=== PATIENT | male | born 2000 | race Asian ===

== ENCOUNTER 2025-07-13 15:58 | Emergency (ER) | payer MEDICAID, SELFPAY ==
--- NOTE | 2025-07-13 16:19 | ED_ITS ---
HPI - General Adult General Chief complaint: General Medical Stated complaint: HGb A1C testing Time Seen by Provider: 07/13/25 20:05 Source: patient Mode of arrival: ambulatory Limitations: no limitations History of Present Illness ED Provider: Esvin MASON HPI narrative: The patient is a 25-year-old male presenting to the ED for evaluation of intermittent episodes of slow digestion and acid reflux which occurs more with fried foods, patient reports symptoms increased last week after a food festival. The patient denies any associated fever/chills, nausea, vomiting, chest pain, shortness of breath, cough, pleurisy, diarrhea, constipation, or other acute somatic complaint. Patient reports he is also worried because while he lived in [place] his blood sugar was elevated and patient is requesting hemoglobin A1c testing. Related Data Previous Rx's ?Medication ?Instructions ?Recorded omeprazole 20 mg capsule,delayed 20 mg PO DAILY #14 ca ps 07/13/25 release Allergies Allergy/AdvReac Type Severity Reaction Status Date / Time No Known Allergies Allergy Verified 07/13/25 16:20 Review of Systems 2 Review of Systems: Yes all other systems are reviewed and are negative PMFSH Social History Social History Advance Directives: No Advance Directives Information Provided: Yes Physical Exam ED Vital Signs: Vital Signs - 24 hr 07/13/25 16:20 07/13/25 20:34 Temperature 97.6 F 97.6 F Pulse Rate 68 68 Respiratory Rate 16 16 Blood Pressure 120/67 120/67 Pulse Oximetry 100 100 Oxygen Delivery Method Room Air Room Air BMI result Body Mass Index 27.4 CONSTITUTIONAL: The patient appears non-toxic, well nourished and in no acute distress. Vital signs as documented. HEAD: Atraumatic, normocephalic. EYES: EOMs grossly intact, pupils equal, conjunctiva clear, no exudate. ENT: Nares patent, no discharge. Airway patent, no audible stridor, visible mucosa is pink and moist without noted lesions. NECK: Trachea is midline, no obvious masses or gross abnormalities. CHEST: Symmetric movement, normal appearance. LUNGS: LS present and CTAB, no w/r/r. Non-labored work of breathing. CARDIAC: Regular Rhythm, S1/S2 appreciated, no murmurs, rubs or gallops. ABDOMEN: Abdomen soft and non-tender x4 quadrants, no palpable masses or organomegaly. : Deferred. EXTREMITIES: Normal tone, moves all extremities spontaneously without reported pain. No obvious acute injury or deformity noted. NEURO: Alert and oriented x3, CN II-XII appear grossly intact. Cerebellar Functioning grossly intact. No obvious sensory or motor deficits. Speech clear and appropriate. PSYCH: normal affect, appropriate eye contact, fluid speech, with appropriate response to questioning. No reported suicidality or homicidality. SKIN: Warm, dry, color appropriate, normal turgor. No rashes noted. Course Course Course Narrative: This is a rapid medical exam performed by Kate Chew NP: Additional HPI, ROS, PE not included below will be deferred to primary provider. Patient is a 25 year old male presenting with complaint of slowed digestion, at times has reflux. Specifically requesting A1c testing. Plan: basic labs Medications Administered Discontinued Medications Generic Name Dose Route Start Last Admin Trade Name Freq PRN Reason Stop Dose Admin Omeprazole 20 mg 07/13/25 20:22 07/13/25 20:33 Omeprazole 20 Mg Capsule.Dr SAMPSON 07/13/25 20:23 20 mg ONCE ONE Administration Medical Decision Making Medical Decision Making [facility] Narrative: 8:24 PM 07/13/2025 (Antoinette MASON): The patient is a 25-year-old male presenting to the ED for evaluation of intermittent episodes of slow digestion and acid reflux which occurs more with fried foods, patient reports symptoms increased last week after a food festival. The patient denies any associated fever/chills, nausea, vomiting, chest pain, shortness of breath, cough, pleurisy, diarrhea, constipation, or other acute somatic complaint. Patient reports he is also worried because while he lived in [place] his blood sugar was elevated and patient is requesting hemoglobin A1c testing. On exam the patient has no acute findings. The patient's laboratory evaluation is unremarkable. Non-fasting glucose is 177. The patient was educated on diet modifications he can make to avoid early satiety and acid reflux symptoms. Patient was also educated on indications for A1c and the need to follow up with the PCP for this testing. Patient stated his understanding. We will discharge the patient with a 2 week course of omeprazole. Admission/Observation Consideration of admission/observation: Escalation of care including admission/observation considered Lab Data [facility] Lab Attestation statement: I reviewed the patient's lab results. 07/13/25 16:29 07/13/25 16:29 Labs: Lab Results 07/13/25 Range/Units 16:29 WBC 6.7 (4.8-10.8) X10*3/uL RBC 5.40 (4.60-5.80) X10*6/uL Hgb 16.1 (14.0-18.0) g/dl Hct 46.6 (42.0-52.0) % MCV 86.3 (80.0-98.0) fL MCH 29.8 (27.0-33.0) pg MCHC 34.5 (31.0-36.0) g/dl RDW 12.2 (11.0-16.0) % Plt Count 208 (160-400) X10*3/uL MPV 9.8 (9.4-12.4) fL Immature Gran % (Auto) 0.3 (0.0-0.4) % Neut % (Auto) 56.0 (45-73) % Lymph % (Auto) 33.5 (20-40) % [place] % (Auto) 7.0 (2-11) % Eos % (Auto) 2.8 (0-4) % Baso % (Auto) 0.4 (0-2) % Lymph # (Auto) 2.3 (1.2-4.9) X10*3/uL [place] # (Auto) 0.5 (0.1-1.2) X10*3/uL Eos # (Auto) 0.2 (0.0-0.4) X10*3/uL Baso # (Auto) 0.0 (0.0-0.2) X10*3/uL Abs Immat Gran (auto) 0.02 (0.00-0.03) X10*3/uL Absolute Neuts (auto) 3.8 (2.0-8.3) x10*3/uL Absolute Nucleated RBC 0.000 (0.0-0.012) X10*3/uL Nucleated RBC % (auto) 0.0 (0.0-0.2) /100WBC Sodium 139 (135-145) mmol/L Potassium 3.7 (3.3-5.1) mmol/L Chloride 104 (96-108) mmol/L Carbon Dioxide 31 H (22-29) mmol/L Anion Gap 8 L (12-20) BUN 10 (9-16) mg/dL Creatinine 0.98 (0.5-1.4) mg/dL Estim Creat Clear Calc 116.3 Estimated GFR > 60 Random Glucose 177 H (60-115) mg/dL Calcium 9.4 (8.4-10.2) mg/dL Total Bilirubin 0.9 (0.0-1.0) mg/dL AST 26 (5-37) U/L ALT 51 H (0-40) U/L Alkaline Phosphatase 66 (39-117) U/L Total Protein 7.2 (6.5-8.0) g/dL Albumin 4.6 (3.5-5.0) g/dL Discharge Plan Discharge Clinical Impression: Acid reflux Patient Disposition: Home, Self-Care Instructions: Diet for Stomach Ulcers and Gastritis (ED), GERD (Gastroesophageal Reflux Disease) (ED) Additional Instructions: Thank you for choosing [facility]'s Emergency Department for your care today. Thankfully your laboratory workup today was reassuring, with no evidence of an infection, anemia, electrolyte abnormality, or kidney dysfunction. Your liver function tests were also normal. At this time there is no indication for admission to the hospital or continued ED observation, and it is safe to discharge you home. Your symptoms of acid reflux can be treated with diet modification and antacids. Additionally we are treating you with omeprazole. Please take omeprazole for the next 2 weeks and then follow up with the your primary care provider for re- evaluation and additional antacid prescriptions as deemed appropriate. Your non-fasting blood sugar reading today was not significantly elevated. A hemoglobin A1c test is not a blood test performed in the emergency department, it is performed by your primary care provider to identify average blood sugar over the course of months and to adjust diabetes medication management in diabetic patients. Please follow up with your primary care provider for this test as indicated. If you do not have a primary care physician, please call the [facility] at [phone] to establish a new primary care physician. While waiting to establish your new primary care physician, you can call our [facility] at [phone] for non-emergency needs. Please return to the emergency department if you develop a fever over 100.4 that does not improve with Tylenol or Ibuprofen, recurrent vomiting, or any other new or worsening symptoms or concerns. Prescriptions: New omeprazole 20 mg capsule,delayed release(DR/EC) 20 mg PO DAILY Qty: 14 0RF Interventions: ED Discharge Assessment Last Done: 07/13/25 20:34 Discharge Date/Time: 07/13/25 20:34 Print Language: Sinhala
[2025-07-13 16:20] VITALS: BP 120/67; PULSE 68; RESP 16; TEMP 36.4; O2SAT 100; BMI 27.4
[2025-07-13 16:33] LABS: MANUAL DIFF FLAG NO
[2025-07-13 16:36] LABS: Hematocrit 46.6 % (42.0-52.0); Hemoglobin 16.1 g/dl (14.0-18.0); Imm Gran Abs Auto 0.02 X10*3/uL (0.00-0.03); Imm Gran Pct Auto 0.3 % (0.0-0.4); Lymphocytes Absolute Auto 2.3 X10*3/uL (1.2-4.9); Mean Corpuscular HGB Conc 34.5 g/dl (31.0-36.0); Mean Corpuscular Hemoglobin 29.8 pg (27.0-33.0); Mean Corpuscular Volume 86.3 fL (80.0-98.0); NRBC Abs Auto 0.000 X10*3/uL (0.0-0.012); NRBC Pct Auto 0.0 /100WBC (0.0-0.2); Platelet Count 208 X10*3/uL (160-400); Red Blood Count 5.40 X10*6/uL (4.60-5.80); White Blood Count 6.7 X10*3/uL (4.8-10.8)
[2025-07-13 16:49] LABS: Alanine Aminotransferase 51 U/L (0-40); Albumin Level 4.6 g/dL (3.5-5.0); Alkaline Phosphatase 66 U/L (39-117); Anion Gap 8 (12-20); Aspartate Amino Transferase 26 U/L (5-37); Blood Urea Nitrogen 10 mg/dL (9-16); Calcium 9.4 mg/dL (8.4-10.2); Carbon Dioxide 31 mmol/L (22-29); Chloride 104 mmol/L (96-108); Creatinine Clr Calc Pharmacy 116.3; Estimated Glomerular Filt Rate > 60; Potassium 3.7 mmol/L (3.3-5.1); Sodium 139 mmol/L (135-145); Total Protein 7.2 g/dL (6.5-8.0)
[2025-07-13 20:34] VITALS: BP 120/67; PULSE 68; RESP 16; TEMP 36.4; O2SAT 100
== END 2025-07-13 20:34 | disposition home or self-care (01) ==
PROVIDERS: Registered Nurse Emergency; Emergency Provider Emergency Medicine Emergency Medical Services
DX: K21.9 Gastro-esophageal reflux disease without esophagitis (principal)
CPT/HCPCS: 36415; 80053; 85025; 99282; 99283